=== PATIENT | male | born 1950 | race Caucasian/White ===

== ENCOUNTER 2017-03-24 21:39 | Inpatient (IN) | payer OTHER ==
[2017-03-24] MEDS ORDERED: ONDANSETRON 4 MG/2 ML VIAL IVP ONE (22:13)
[2017-03-24] MEDS ORDERED: NS 1,000 ML IV ONE (22:13)
[2017-03-24] MEDS ORDERED: HYDROmorphONE/DILAUDID 1 MG/ML SYR IVP ONE (22:13)
--- NOTE | 2017-03-24 22:13 | EDPHY ---
H & P Stated Complaint: RUQ pain, N/V HPI/ROS: HPI CHIEF COMPLAINT: Right upper quadrant pain HISTORY OF PRESENT ILLNESS: This patient is 67-year-old male significant past medical history for coronary artery disease, as well as cholecystectomy, as well as pulmonary embolism multiple, on Effient, presents emergency room with right upper quadrant pain. Yesterday states that he had some nausea vomiting 2- 3 episodes. Nonbilious nonbloody. Today developed stabbing right upper quadrant pain. Feels similar to when he previously had his gallbladder removed as well as similar to when he had a biliary stent placed. He denies fever. States the pain does radiate from his right upper quadrant down through his abdomen. Past Medical History: Coronary artery disease. Pulmonary embolism Past Surgical History: Cholecystectomy Social History: Denies daily use drugs alcohol tobacco products. Family History: Noncontributory ROS REVIEW OF SYSTEMS: A comprehensive 10 point review of systems is otherwise negative aside from elements mentioned in the history of present illness. Exam Constitutional appears well nontoxic triage nursing summary reviewed, vital signs reviewed, awake/alert. Eyes conjunctivae were slightly yellow tinged and sclera, EOMI, PERRLA. HENT normal inspection, atraumatic, moist mucus membranes, no epistaxis, neck supple/ no meningismus, no raccoon eyes. Respiratory clear to auscultation bilaterally, normal breath sounds, no respiratory distress, no wheezing. Cardiovascular rate normal, regular rhythm, no murmur, no edema, distal pulses normal. Gastrointestinal soft, tender palpation right upper quadrant, , no rebound, no guarding, normal bowel sounds, no distension, no pulsatile mass. Genitourinary no CVA tenderness. Musculoskeletal no midline vertebral tenderness, full range of motion, no calf swelling, no tenderness of extremities, no meningismus, good pulses, neurovascularly intact. Skin pink, warm, & dry, no rash, skin atraumatic. Neurologic awake, alert and oriented x 3, AAOx3, moves all 4 extremities equally, motor intact, sensory intact, CN II-XII intact, normal cerebellar, normal vision, normal speech. Psychiatric normal mood/affect. Heme/Lymph/Immune no lymphadenopathy. Differential diagnosis includes but is not limited to and in no particular order : Bowel obstruction, appendicitis, biliary stone, diverticulitis, colitis, enteritis, perforated viscus, gastritis, GERD, esophagitis, urinary tract infection, pyelonephritis, kidney stones Medical Decision Making: Plan for this patient IV establishment, IV fluid bolus , Zofran for nausea and Dilaudid for pain control, ultrasound right upper quadrant, check liver enzymes and abdominal labs including bilirubin, check urinalysis, re-evaluate. Re-evaluation: Ultrasound of the this shows dilatation of the common bile duct with sludge in it as well as intrahepatic ductal dilatation Dr. Sai Daniels and called me about this report. Spoke with Dr. Mercado gastroenterology request the patient be placed on IV antibiotics. Admission. Reason for admission is choledocholithiasis. His blood work has been reviewed. No elevated white blood cell count is not septic no fever. He has retained stones in his biliary ducts. Consistent with acute choledocholithiasis. He will need IV antibiotics bowel rest IV fluids nausea and pain control overnight. Be admitted to the hospital service GI will consult on in the morning. 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 - Social History Smoking Status: Never smoked Constitutional: Initial Vital Signs Temperature (C) 37.1 C 03/24/17 21:40 Heart Rate 100 03/24/17 21:40 Respiratory Rate 20 03/24/17 21:40 Blood Pressure 147/107 H 03/24/17 21:40 O2 Sat (%) 97 03/24/17 21:40 O2 Delivery Mode Room Air Allergies/Adverse Reactions: No Known Allergies Allergy (Verified 01/02/16 15:41) Home Medications: Medication Instructions Recorded Herbals/Supplements -Info Only 1 ea PO DAILY 03/28/16 [place]-3 Fatty Acids [Fish Oil 1000 1,000 mg PO DAILY 03/28/16 mg (*)] Prasugrel HCl [Effient 10mg (*)] 10 mg PO DAILY #30 tab 03/30/16 Medical Decision Making - Data Points Laboratory Results: Laboratory Results 03/24/17 22:02 03/24/17 22:02 Medications Given: Hydromorphone HCl (Dilaudid) 0.2 - 0.4 mg IVP Q2HRS PRN PRN Reason: Pain, Severe Unable to Take PO Stop: 04/04/17 02:39 Last Admin: 03/25/17 08:50 Dose: 0.4 mg Ertapenem 1 gm/ Sodium (Chloride) 100 mls @ 200 mls/hr IV DAILY DELIA PRN Reason: Protocol Stop: 04/24/17 08:59 Last Admin: 03/25/17 08:49 Dose: 100 mls Sodium Chloride (Ns) 1,000 mls @ 100 mls/hr IV CONT DELIA Stop: 09/21/17 00:59 Last Admin: 03/25/17 08:47 Dose: 1,000 mls Oxycodone HCl (Oxycodone Ir) 5 - 10 mg PO Q4 PRN PRN Reason: Pain, Severe Able to Take PO Stop: 04/04/17 00:54 Last Admin: 03/25/17 16:19 Dose: 5 mg Prasugrel (Effient) 10 mg PO DAILY DELIA Stop: 09/21/17 08:59 Last Admin: 03/25/17 08:58 Dose: Not Given Throat Lozenges (Cepacol Lozenge) 1 ea PO PRN PRN PRN Reason: Sore Throat Stop: 09/21/17 12:30 Last Admin: 03/25/17 12:38 Dose: 1 ea Discontinued Medications Hydromorphone HCl (Dilaudid) 0.5 mg IVP EDNOW ONE Stop: 03/24/17 22:14 Last Admin: 03/24/17 22:34 Dose: 0.5 mg Sodium Chloride (Ns) 1,000 mls @ 0 mls/hr IV EDNOW ONE; Wide Open PRN Reason: Protocol Stop: 03/24/17 22:14 Last Admin: 03/24/17 22:31 Dose: 1,000 mls Ertapenem 1 gm/ Sodium (Chloride) 100 mls @ 200 mls/hr IV EDNOW ONE PRN Reason: Protocol Stop: 03/25/17 00:54 Last Admin: 03/25/17 00:48 Dose: 100 mls Lactated Ringer's (Lr) 1,000 mls @ 0 mls/hr IV ONCE ONE PRN Reason: Per Protocol Stop: 03/25/17 09:38 Last Admin: 03/25/17 09:41 Dose: 1,000 mls Ondansetron HCl (Zofran) 4 mg IVP EDNOW ONE Stop: 03/24/17 22:14 Last Admin: 03/24/17 22:32 Dose: 4 mg Departure - Departure Disposition: [facility] Acute Clinical Impression: Choledocholithiasis, Hyperbilirubinemia Condition: Fair
[2017-03-24 22:25] LABS: % IMMATURE GRANULYOCYTES 0.4 % (0.0-1.1); ABSOLUTE IMMATURE GRANULOCYTES 0.04 10^3/uL (0.00-0.10); ADD DIFF? NO; ADD MORPH? NO; ADD SCAN? NO; ATYPICAL LYMPHOCYTE FLAG 0 (0-99); FRAGMENT RBC FLAG 0 (0-99); HEMOGLOBIN 15.5 g/dL (13.7-17.5); LEFT SHIFT FLG 0 (0-99); LIPEMIA HEMOLYSIS FLAG 90 (0-99); MEAN CELL HEMOGLOBIN 31.1 pg (27.9-34.1); MEAN CELL HEMOGLOBIN CONCENTR. 34.4 g/dL (32.4-36.7); MEAN CELL VOLUME 90.4 fL (81.5-99.8); MEAN PLATELET VOLUME 9.5 fL (8.7-11.7); PLATELET CLUMPS FLAG 0 (0-99); PLATELET COUNT 182 10^3/uL (150-400); RED BLOOD CELL COUNT 4.98 10^6/uL (4.40-6.38); RED CELL DISTRIBUTION WIDTH 13.8 % (11.5-15.2)
[2017-03-24 22:31] LABS: ALANINE AMINOTRANSFERASE 618 IU/L (21-72); ALBUMIN 4.4 g/dL (3.5-5.0); ALKALINE PHOSPHATASE 300 IU/L (38-126); ANION GAP 14 mEq/L (8-16); ASPARTATE AMINOTRANSFERASE 487 IU/L (17-59); BILIRUBIN,TOTAL 10.6 mg/dL (0.1-1.4); BILIRUBIN-CONJUGATED 8.6 mg/dL (0.0-0.5); CALCIUM 9.1 mg/dL (8.5-10.4); CARBON DIOXIDE 20 mEq/l (22-31); CHLORIDE 101 mEq/L (97-110); GLOMERULAR FILTRATION RATE > 60; GLUCOSE 132 mg/dL (70-100); POTASSIUM 3.8 mEq/L (3.5-5.2); SODIUM 135 mEq/L (134-144); TOTAL PROTEIN 7.9 g/dL (6.3-8.2)
[2017-03-24 22:32] LABS: INR 1.05 (0.83-1.16); PROTIME(PATIENT) 13.6 SEC (12.0-15.0)
[2017-03-24 22:33] LABS: APTT 25.3 SEC (23.0-38.0)
[2017-03-24 22:41] LABS: TROPONIN I < 0.012 ng/mL (0.000-0.034)
--- NOTE | 2017-03-24 22:44 | CPEKG ---
Heart Rate: 109 RR Interval: 550 P-R Interval: 120 QRSD Interval: 128 QT Interval: 340 QTC Interval: 458 P [place]: 72 QRS [place]: 23 T Wave [place]: 8 EKG Severity - ABNORMAL ECG - EKG Impression: SINUS TACHYCARDIA EKG Impression: RIGHT BUNDLE BRANCH BLOCK Electronically Signed By: Kamron Macias 25-Mar-2017 07:17:35
[2017-03-25] MEDS ORDERED: ERTAPENEM 1 GM in NS 100 ML IV ONE (00:25)
[2017-03-25] MEDS ORDERED: ONDANSETRON DISINTEGRATING 4 MG TAB PO PRN (00:52)
[2017-03-25] MEDS ORDERED: ACETAMINOPHEN 325 MG TAB PO PRN (00:52)
[2017-03-25] MEDS ORDERED: ONDANSETRON 4 MG/2 ML VIAL IVP PRN ×2 (00:52→11:01)
[2017-03-25] MEDS ORDERED: NS 1,000 ML IV SCH (01:00)
[2017-03-25] MEDS ORDERED: HYDROmorphONE/DILAUDID 1 MG/ML SYR IVP PRN (02:40)
--- NOTE | 2017-03-25 03:59 | GHP ---
[f rep st] HISTORY AND PHYSICAL DATE OF ADMISSION: 03/25/2017 CHIEF COMPLAINT: Right upper quadrant pain. HISTORY OF PRESENT ILLNESS: A 67-year-old male with history of coronary artery disease status post stent, pulmonary embolism and prior cholecystectomy and biliary stent, presenting with right upper quadrant pain. Pain started last night and he had a couple episodes of nonbloody, nonbilious emesis. He states the pain was excruciating and felt like the pain right before he needed his gallbladder out. It has been intermittent. It is not associated with food. The first night he developed pain it was after he did have a steak burrito, but he does not correlate the timing with that. Tonight, at home, he developed pain again at 7:30 p.m. Denies fevers, chills, or sweats. No diarrhea. No headache. Has been eating and drinking normally. He had a cholecystectomy in 2014 with some complication per patient that required a biliary stent that has since been removed. Denies family history of gallstones. Denies chest pain, shortness of breath. Walks 3 miles a day, near [facility] without chest pain or shortness of breath. REVIEW OF SYSTEMS: I completed a 10-point review of systems negative except as noted in HPI. PAST MEDICAL HISTORY: Coronary artery disease, last stent in 2016, pulmonary embolism 5 years ago, hypertension, history of biliary stent. PAST SURGICAL HISTORY: Appendectomy, cholecystectomy. FAMILY HISTORY: No stones. No cancer. HOME MEDICATIONS: Effient, fish oil, Co-Q10. ALLERGIES: None. SOCIAL HISTORY: Lives near [facility]. Has a previous 30-pack year smoking history, has quit since. Drinks a glass of wine daily. No illicits. PHYSICAL EXAM: VITAL SIGNS: Temperature 37, blood pressure 137/81, heart rate 100, respiration 20, 93% on room air. GENERAL: Patient is sitting up in bed, in no acute distress. HEENT: Scleral icterus. Mildly dry mucous membranes. CV: Tachy but regular. No murmurs, gallops, or rubs. LUNGS: Clear to auscultation. No crackles or wheezing. ABDOMEN: Soft, nontender after receiving pain medications in the emergency room. Positive bowel sounds. : No suprapubic tenderness. MUSCULOSKELETAL: 5/5 upper and lower extremity strength. NEUROLOGIC: Cranial nerves 2 through 12 intact. PSYCHIATRIC: Alert and oriented x3. LABORATORY DATA: WBC is 9, hemoglobin 15, hematocrit 48, platelets 182. Sodium 135, potassium 3.8, chloride 101, carbon dioxide 20, creatinine 1 ( baseline 0.8). Total bilirubin 10, conjugated 8.6, unconjugated 2. Troponin less than 0.012. AST 47, ALT 611. Coag negative. Abdominal ultrasound: Cholelithiasis. New intrahepatic and extrahepatic dilatation. A 2 x 0.9 cm x 0.9 cm distal common bile duct stone. EKG personally reviewed by me right bundle branch block, sinus tachycardia. This is new from prior. D-dimer 1. ASSESSMENT AND PLAN: 1. Choledocholithiasis: no evidence of cholangitis; he is afebrile without leukocytosis. Dr. Macias spoke with Dr. Mercado with GI. Will plan for ERCP in the morning. Patient will be n.p.o. with IV fluids and prophylactic IV antibiotics. 2. Right upper quadrant pain: Secondary to stones. Will treat with IV Dilaudid p.r.n. 3. Mild acute kidney injury. Creatinine 1, baseline is 0.8. Will hydrate overnight. 4. Hyperbilirubinemia, again secondary to stones. Plan as stated above. 5. Transaminitis again secondary to stones. 6. Mild metabolic acidosis secondary to suspected decreased p.o. intake. We will hydrate overnight, repeat in the morning. 7. Coronary artery disease: Status post PCI. Continue Effient, fish oil. Unclear why not on a statin or beta cindy. 8. History of pulmonary embolism. If it was provoked, patient is not certain. 9. Tachycardia. Sinus tach per my review of EKG likely secondary to pain, dehydration. Patient does have a history of pulmonary embolism, but not suspicious at this time as he denies any chest pain or shortness of breath. Stable on room air. 10. Elevated D-dimer: Again, patient is asymptomatic. Suspect this is secondary to acute illness. He is stable on room air and without any symptoms. If tachycardia to persist can consider CTPE. 11. Diet. N.p.o. 12. SCDs for deep venous thrombosis prophylaxis. DISPOSITION: Inpatient admission given acute choledocholithiasis warranting IV antibiotics, fluids and GI intervention. /[id number]/MODL MTDD
[2017-03-25 05:30] LABS: % IMMATURE GRANULYOCYTES 0.5 % (0.0-1.1); ABSOLUTE IMMATURE GRANULOCYTES 0.04 10^3/uL (0.00-0.10); ADD DIFF? NO; ADD MORPH? NO; ADD SCAN? NO; ATYPICAL LYMPHOCYTE FLAG 0 (0-99); FRAGMENT RBC FLAG 0 (0-99); HEMATOCRIT 38.5 % (40.0-51.0); HEMOGLOBIN 13.3 g/dL (13.7-17.5); LEFT SHIFT FLG 20 (0-99); LIPEMIA HEMOLYSIS FLAG 90 (0-99); MEAN CELL HEMOGLOBIN CONCENTR. 34.5 g/dL (32.4-36.7); MEAN CELL VOLUME 89.7 fL (81.5-99.8); MEAN PLATELET VOLUME 9.5 fL (8.7-11.7); PLATELET CLUMPS FLAG 0 (0-99); PLATELET COUNT 137 10^3/uL (150-400); RED BLOOD CELL COUNT 4.29 10^6/uL (4.40-6.38); RED CELL DISTRIBUTION WIDTH 13.9 % (11.5-15.2)
[2017-03-25 05:59] LABS: ALANINE AMINOTRANSFERASE 515 IU/L (21-72); ALBUMIN 3.2 g/dL (3.5-5.0); ALKALINE PHOSPHATASE 223 IU/L (38-126); ANION GAP 10 mEq/L (8-16); ASPARTATE AMINOTRANSFERASE 338 IU/L (17-59); BILIRUBIN,TOTAL 9.7 mg/dL (0.1-1.4); CALCIUM 8.2 mg/dL (8.5-10.4); CARBON DIOXIDE 20 mEq/l (22-31); CHLORIDE 107 mEq/L (97-110); GLOMERULAR FILTRATION RATE > 60; GLUCOSE 110 mg/dL (70-100); POTASSIUM 4.1 mEq/L (3.5-5.2); SODIUM 137 mEq/L (134-144); TOTAL PROTEIN 6.1 g/dL (6.3-8.2)
[2017-03-25 06:09] LABS: BILIRUBIN-CONJUGATED 7.9 mg/dL (0.0-0.5); BILIRUBIN-UNCONJUGATED 1.8 mg/dL (0.0-1.1)
[2017-03-25] MEDS: ERTAPENEM 1 GM in NS 100 ML IV SCH (08:49)
[2017-03-25] MEDS ORDERED: PRASUGREL HCL 10 MG TAB PO SCH (09:00)
[2017-03-25] MEDS ORDERED: LR 1,000 ML IV ONE (09:37)
--- NOTE | 2017-03-25 09:50 | GCON ---
[f rep st] CONSULTATION INPATIENT CONSULTATION NOTE REFERRING PHYSICIAN: Pattie Dacosta MD REASON FOR CONSULTATION: Choledocholithiasis. CHIEF COMPLAINT: Abdominal pain. HISTORY OF PRESENT ILLNESS: Briefly, the patient is a pleasant 67-year-old male with a history of coronary artery disease, who presented to the emergency room with right upper quadrant abdominal pain. He reports that this abdominal pain syndrome was very similar to a syndrome he suffered in 2014, when he underwent cholecystectomy for acute cholecystitis. Of note, that cholecystectomy was complicated by a bile leak, for which he had to undergo ERCP. At that time, a large sphincterotomy was accomplished. He reports he was in his usual state of health until this past several days, when he began noticing increasing recurrence of abdominal pain. He reports no fever. He denies jaundice. He reports no nausea or vomiting. His emergency room evaluation was significant for the discovery of transaminitis, with an elevation in bilirubin, and an ultrasound revealing a dilated common bile duct, and probable choledocholithiasis. ALLERGIES: None. PAST MEDICAL HISTORY: Includes coronary artery disease, for which he received a stent in 2016. He had a pulmonary embolism 5 years ago, high blood pressure, and history of acute cholecystitis with postop bile leak, requiring biliary stent. PAST SURGICAL HISTORY: Includes appendectomy, cholecystectomy. FAMILY HISTORY: Negative for biliary tract disease. HOME MEDICINES: Effient, fish oil, and coenzyme Q10. REVIEW OF SYSTEMS: A complete 10-point review of systems was done and the pertinent positives and negatives are documented in the history of present illness. PHYSICAL EXAM: GENERAL: This is a well-developed male, in no apparent distress. HEENT: His pupils are equal, round, reactive to light and accommodation. His sclerae are mildly icteric. His oropharynx is clear. NECK : Supple without lymphadenopathy. HEART: Regular without murmur. ABDOMEN: Soft, nontender, with normoactive bowel sounds. EXTREMITIES: Free of cyanosis , clubbing, or edema. NEURO: Grossly nonfocal. SKIN: Warm and dry with minimal jaundice. MUSCULOSKELETAL: His joints show no arthritis. PSYCH: Reveals normal mood and affect. Ultrasound on 03/24/2017, revealed probable choledocholithiasis with new intrahepatic ductal dilation and a mild increase in extrahepatic ductal dilation. There is a possible 2.2 x 1 x 1 cm stone. LABORATORY DATA: White count of 8.67, hemoglobin of 13.3, hematocrit of 38.5, platelet count 137. Sodium of 137, potassium of 4.1, chloride of 107, bicarb of 20, BUN of 11, creatinine of 1.0. Total bilirubin of 9.7, conjugated of 7.9, unconjugated of 1.8, AST of 338, ALT of 515, alkaline phosphatase of 223. IMPRESSION AND RECOMMENDATIONS: The patient appears to be having right upper quadrant pain from symptomatic choledocholithiasis. His laboratory testing and ultrasound are consistent with this. Given his current use of Effient, we may have limited options with regard to stone extraction, given the potential for need for dilation, sphincterotomy extension, etc., we can, however, very likely place a bridging biliary stent to labile flow, until such time as he can discontinue his Effient and proceed with a more invasive ERCP procedure. At this time, the patient should hold his Effient, I would like him to be on antibiotics given his presumed bile duct obstruction, and we will plan the ERCP. /[id number]/MODL MTDD
[2017-03-25] MEDS ORDERED: GLUCAGON,HUMAN RECOMBINANT 1 MG VIAL ONE ×2 (09:56→10:06)
[2017-03-25] MEDS ORDERED: IOTHALAMATE MEG (CONRAY) 50 ML VIAL IV ONE (09:57)
--- NOTE | 2017-03-25 10:00 | PDANEPAE ---
ANE History of Present Illness Abd pain ANE Past Medical History - Cardiovascular History Hx Coronary Artery / Peripheral Vascular Disease: Yes - Pulmonary History Hx Oxygen in Use at Home: No Hx Sleep Apnea: No Sleep Apnea Screening Result - Last Documented: Positive - Endocrine History Hx Diabetes: No - Chronic Pain History Chronic Pain: No ANE Review of Systems Review of Systems: - Exercise capacity METS (RN): 3 METS ANE Patient History - Allergies Allergies/Adverse Reactions: No Known Allergies Allergy (Verified 01/02/16 15:41) - Home Medications Home medications: home medication list seen and reviewed Home Medications: Herbals/Supplements -Info Only 1 ea PO DAILY 03/28/16 [Last Taken Unknown] [place]-3 Fatty Acids [Fish Oil 1000 mg (*)] 1,000 mg PO DAILY 03/28/16 [Last Taken 03/24/17] - NPO status NPO Since - Liquids (Date): 03/24/17 NPO Since - Liquids (Time): 21:00 NPO Since - Solids (Date): 03/24/17 NPO Since - Solids (Time): 12:00 - Smoking Hx Smoking Status: Former smoker ANE Labs/Vital Signs - Labs Result Diagrams: 03/25/17 05:25 03/25/17 05:25 - Vital Signs Blood Pressure: 139/82 Heart Rate: 91 Respiratory Rate: 20 O2 Sat (%): 94 Height: 180.34 cm Weight: 72.575 kg ANE Physical Exam - Airway Neck exam: FROM Mallampati Score: Class 2 Mouth exam: poor dentition - Pulmonary Pulmonary: no respiratory distress - Cardiovascular Cardiovascular: regular rate and rhythym - ASA Status ASA Status: III ANE Anesthesia Plan Anesthesia Plan: general endotracheal anesthesia
[2017-03-25] MEDS ORDERED: ROCURONIUM 50 MG/5 ML VIAL ONE (10:14)
[2017-03-25] MEDS ORDERED: LIDOCAINE 2% 5 ML SDV ONE (10:14)
[2017-03-25] MEDS ORDERED: fentaNYL 100 MCG/2 ML INJ ONE (10:15)
[2017-03-25] MEDS ORDERED: PROPOFOL 200 MG/20 ML VIAL ONE (10:15)
[2017-03-25] MEDS ORDERED: SUGAMMADEX SODIUM 200 MG/2 ML VIAL IVP ONE (10:54)
[2017-03-25] MEDS ORDERED: fentaNYL 100 MCG/2 ML INJ IVP PRN (11:01)
[2017-03-25] MEDS ORDERED: NALOXONE HCL 0.4 MG/ML INJ IVP PRN (11:01)
--- NOTE | 2017-03-25 11:14 | SUROPNOTE ---
[facility] Operative Report - Surgery ERCP Indication: choledocholithiasis, abdominal pain Medications: per anesthesia Complications: none acutely Description of procedure: After informed consent was obtained the patient was brought to the endoscopy suite. GETA was administered by our anesthesia colleagues without complications. The patient was then moved into the supine/ swimmer's position. The side-viewing duodenoscope was advanced into the mouth and to the proximal duodenum. The area of the papilla was visualized. Prior sphincterotomy appeared to have stenosed. A standard sphincterotome was used to guide the placement of a biliary wire into the bile tree. Injected contrast revealed a very dilated (>2cm) CBD with multiple CBD stones. Given the patient's current use of Effient, sphincterotomy, dilation, balloon sweep, etc were deferred given the increased risk of bleeding. Instead, a temporary 10Fr x 7cm stent was placed to provide biliary drainage. Findings: 1. Choledocholithiasis - multiple, large, bile duct stones noted - very dilated CBD - restenosis of prior sphincterotomy - temporary biliary drain placed - will need repeat ERCP once can be off Effient for 7 days - will likely need large sphincterotomy with balloon sphincter dilation and lithotripsy - monitor labs - advance diet to clears - monitor tonight and consider dc home tomorrow if tolerating po with less pain. - can dc antibiotics
--- NOTE | 2017-03-25 11:19 | POSTANESTH ---
Post Anesthetic Evaluation Cardiovascular Status: Normal, Stable Respiratory Status: Normal, Stable Level of Consciousness/Mental Status: Can Participate in Eval Pain Control: Adequate, Prn Tx Ordered Nausea/Vomiting Control: Adequate, Prn Tx Ordered Complications Possibly Related to Anesthesia: None Noted
[2017-03-25] MEDS ORDERED: CEPACOL LOZENGE PO PRN (12:31)
--- NOTE | 2017-03-25 15:53 | HOSPPROG ---
Hospitalist Progress Note Assessment/Plan: 67-year-old male admitted with abdominal pain. Patient is new to me today. He was found to have a stone in his common bile duct and by a endoscopy noted to have a tight sphincter. Stone removal would not perform but a stent was placed. Patient is new to me today -choledochal lithiasis with abdominal pain. With the placement of a stent the pain may be abating. He is currently on clears post stent placement. -coronary artery disease status post stent placement in 2016 on Effient. As a result the Effient his anticoagulation and bleeding will be prolong for approximately the next 7 days. Thus no sphincter dilation or stone removal could be performed. Will hold his Effient this point. -pulmonary embolus 5 years [employer] on Effient. -fever of 100.1 likely related to the choledocholithiasis. Plan patient be placed on clears and will follow his abdominal pain. He can tolerate clears and tolerated and advance diet that he can be discharged. Will hold his Effient and an ERCP with sphincterotomy and stone removal will be performed 7 days post stopping the Effient. Subjective: Reports he is feeling worse now than he did before the procedure. No fever cough shortness of breath but says the abdominal pain is slightly worse at the moment. He is relieved to know that there was an identification of the problem. Objective: Vital Signs Temp Pulse Resp BP Pulse Ox 36.8 C 77 16 140/86 H 94 03/25/17 15:36 03/25/17 15:36 03/25/17 15:36 03/25/17 15:36 03/25/17 15:36 Laboratory Results 03/25/17 05:25 03/25/17 05:25 03/24/17 03/25/17 03/26/17 05:59 05:59 05:59 Intake Total 2100 650 Balance 2100 650 PT 13.6 SEC (12.0-15.0) 03/24/17 22:02 INR 1.05 (0.83-1.16) 03/24/17 22:02 - Time Spent With Patient Time Spent with Patient: greater than 35 minutes Time Spent with Patient: Greater than 35 minutes spent on this patients care, greater than 50% of time spent counseling, educating, and coordinating care regarding the above mentioned plan. - Pending Discharge Pending Discharge Within 24 Hours: Yes Pending Discharge Date: 03/26/17 Pending Discharge Time: 11:00 - Physical Exam Constitutional: no apparent distress Eyes: PERRL, anicteric sclera Ears, Nose, Mouth, Throat: moist mucous membranes, hearing normal Cardiovascular: regular rate and rhythym, no murmur, rub, or gallop Respiratory: no respiratory distress, no rales or rhonchi, clear to auscultation Gastrointestinal: normoactive bowel sounds, tenderness (Tenderness in the right upper quadrant without rebound) Genitourinary: no bladder fullness Skin: warm Musculoskeletal: full muscle strength Neurologic: AAOx3, CN II-XII Intact Psychiatric: interacting appropriately ICD10 Worksheet Patient Problems: Problems Problem Status Onset Acute cholecystitis Acute Postoperative abdominal pain Acute Choledocholithiasis with obstruction Acute Dyspnea on exertion Acute Chest pain Acute Elevated troponin Acute Choledocholithiasis Acute Hyperbilirubinemia Acute
[2017-03-25] MEDS: oxyCODONE IR 5 MG TAB PO PRN (16:19)
[2017-03-26 03:32] VITALS: O2SAT 93
[2017-03-26 04:25] LABS: COLOR AMBER; LEUKOCYTE ESTERASE,URINE NEGATIVE (NEGATIVE); NITRITE,URINE NEGATIVE (NEGATIVE)
[2017-03-26 04:29] LABS: MUCUS TRACE /lpf (NONE-1+)
[2017-03-26 05:26] LABS: % IMMATURE GRANULYOCYTES 0.5 % (0.0-1.1); ABSOLUTE IMMATURE GRANULOCYTES 0.02 10^3/uL (0.00-0.10); ADD DIFF? NO; ADD MORPH? NO; ADD SCAN? NO; ATYPICAL LYMPHOCYTE FLAG 10 (0-99); FRAGMENT RBC FLAG 0 (0-99); HEMATOCRIT 35.8 % (40.0-51.0); HEMOGLOBIN 12.5 g/dL (13.7-17.5); LEFT SHIFT FLG 0 (0-99); LIPEMIA HEMOLYSIS FLAG 90 (0-99); MEAN CELL HEMOGLOBIN 31.4 pg (27.9-34.1); MEAN CELL HEMOGLOBIN CONCENTR. 34.9 g/dL (32.4-36.7); MEAN CELL VOLUME 89.9 fL (81.5-99.8); MEAN PLATELET VOLUME 9.5 fL (8.7-11.7); PLATELET CLUMPS FLAG 10 (0-99); PLATELET COUNT 136 10^3/uL (150-400); RED BLOOD CELL COUNT 3.98 10^6/uL (4.40-6.38)
[2017-03-26 05:40] LABS: ALANINE AMINOTRANSFERASE 448 IU/L (21-72); ALBUMIN 3.2 g/dL (3.5-5.0); ALKALINE PHOSPHATASE 196 IU/L (38-126); ANION GAP 9 mEq/L (8-16); ASPARTATE AMINOTRANSFERASE 259 IU/L (17-59); BILIRUBIN,TOTAL 8.9 mg/dL (0.1-1.4); CALCIUM 8.4 mg/dL (8.5-10.4); CARBON DIOXIDE 20 mEq/l (22-31); CHLORIDE 111 mEq/L (97-110); CREATININE 0.9 mg/dL (0.7-1.3); GLOMERULAR FILTRATION RATE > 60; GLUCOSE 114 mg/dL (70-100); POTASSIUM 4.1 mEq/L (3.5-5.2); SODIUM 140 mEq/L (134-144); TOTAL PROTEIN 5.8 g/dL (6.3-8.2)
[2017-03-26 05:47] LABS: BILIRUBIN-CONJUGATED 7.4 mg/dL (0.0-0.5); BILIRUBIN-UNCONJUGATED 1.5 mg/dL (0.0-1.1)
[2017-03-26 07:30] VITALS: BP 161/82; PULSE 84; RESP 18; TEMP 99.5
[2017-03-26] MEDS: ERTAPENEM 1 GM in NS 100 ML IV SCH (09:09)
[2017-03-26] MEDS: oxyCODONE IR 5 MG TAB PO PRN ×2 (09:40→12:49)
--- NOTE | 2017-03-26 11:07 | SOAPPROG ---
SOAP Progress Note Assessment/Plan: Assessment/Plan: 1. Choledocholithiasis - temporary plastic stent in place - will need repeat ERC with more definitive stone removal - pain has resolved - LFTs still elevated, but resolving - tolerating po - ok to dc home. - my office to arrange f/u ERCP as soon as possible - will sign off, call with questions Subjective: CC: f/u bile duct stones S: some sore throat tolerated diet advancement no pain no fever still with dark urine no cough anxious to go home Objective: Vital Signs Temp Pulse Resp BP Pulse Ox 37.5 C 84 18 161/82 H 93 03/26/17 07:29 03/26/17 07:29 03/26/17 07:29 03/26/17 07:29 03/26/17 07:29 Laboratory Results 03/26/17 05:08 03/26/17 05:08 03/25/17 03/26/17 03/27/17 05:59 05:59 05:59 Intake Total 2100 850 Output Total 250 Balance 2100 600 PT 13.6 SEC (12.0-15.0) 03/24/17 22:02 INR 1.05 (0.83-1.16) 03/24/17 22:02 Laboratory Tests 03/24/17 03/24/17 03/25/17 22:02 22:02 05:25 WBC Hgb Hct Plt Count D-Dimer 1.12 H Glucose 132 H 110 H Total Bilirubin 10.6 H 9.7 H Conjugated Bilirubin 8.6 H 7.9 H Unconjugated Bilirubin 2.0 H 1.8 H AST 487 H 338 H ALT 618 H 515 H Alkaline Phosphatase 300 H 223 H Albumin 03/26/17 03/26/17 05:08 05:08 WBC 4.05 Hgb 12.5 L Hct 35.8 L Plt Count 136 L D-Dimer Glucose 114 H Total Bilirubin 8.9 H Conjugated Bilirubin 7.4 H Unconjugated Bilirubin 1.5 H AST 259 H ALT 448 H Alkaline Phosphatase 196 H Albumin 3.2 L Physical Exam - Physical Exam EENT: PERRL/EOMI, scleral icterus (R), scleral icterus (L) Respiratory: lungs clear Cardiac/Chest: normal peripheral pulses, regular rate, rhythm, No edema Abdomen: normal bowel sounds, non-tender, soft, No organomegaly, No distended, No guarding, No rebound Rectal: deferred Skin: normal color, jaundice Extremities: normal range of motion Neuro/Psych: no motor/sensory deficits ICD10 Worksheet Patient Problems: Problems Problem Status Onset Choledocholithiasis Acute Hyperbilirubinemia Acute Acute cholecystitis Acute Chest pain Acute Choledocholithiasis with obstruction Acute Dyspnea on exertion Acute Elevated troponin Acute Postoperative abdominal pain Acute
--- NOTE | 2017-03-26 14:29 | GDS ---
[f rep st] DISCHARGE SUMMARY NEW AND ACUTE DIAGNOSES: 1. Acute choledocholithiasis with jaundice. 2. Coronary artery disease, status post stent placement in 2016, on Effient at time of admission. 3. Pulmonary embolus 5 years [employer]. CONSULTATION: GI. PROCEDURES: Upper endoscopy was performed with duodenoscope. Finding of very dilated common bile duct and restenosis of a prior sphincterotomy. A plastic stent was left in place. Stone extraction was not attempted, as the patient was on Effient. HOSPITAL COURSE: This 67-year-old gentleman presented with a complaint of jaundice and right upper quadrant pain. On imaging, he was found to have choledocholithiasis, and upper endoscopy revealed a stenosis of his prior sphincterotomy. A plastic stent was left in place without effort for stone extraction, as the gentleman was anticoagulated on Effient. Laboratory studies confirmed the finding of an elevated AST, bilirubin and alkaline phosphatase. Following the procedure, his laboratory studies were improving, although he remained jaundice. His Effient was stopped prior to the procedure and will be held until further evaluation. DISCHARGE MEDICATIONS: Stopped medication will be Effient. His usual medications will be omega-3 fatty acids and herbal supplementation. New medication will be [place] 5/325 mg tablets #12. Time: 40 minutes > 50% to eap counselor and coordinate care. Matters of anticoagulation were explained to the patient and details of the needed followup /[id number]/MODL MTDD
--- NOTE | 2017-03-29 17:06 | ASDISCHSUM ---
Discharge Information Plan Status:Home with Home Health Medically Cleared to Leave:03/26/2017 Discharge Date:03/26/2017 02:00 PM CM D/C Disposition:Home, Routine, Self-Care ADT D/C Disposition:Home, Routine, Self-Care Projected Discharge Date:03/26/2017 12:00 AM Transportation at D/C: Discharge Delay Reason: Follow-Up Date:03/26/2017 12:00 AM Discharge Slot: Final Diagnosis: Placement Information Patient Contact Information Contact Name:AYLEEN Relationship:Daughter Address: City: [facility][1] Phone: [facility]/CVRx Code: Email: Financial Information Financial Class:HMO and PPO Plans Primary Plan Desc[place] Primary Plan Number:[id number] Secondary Plan Desc: Secondary Plan Number: Assessment Information Intervention Information
== END 2017-03-26 14:00 | disposition home or self-care (01) | DRG 445 ==
LOC: F3E 03-25 01:02
PROVIDERS: ADMIT Internal Medicine; ATTEND Internal Medicine Pulmonary Disease
PROC: 0F798DZ Dilation of Common Bile Duct with Intraluminal Device, Via Natural or Artificial Opening Endoscopic (ICD-10-PCS; principal; 2017-03-25 10:30)
DX: K80.50 Calculus of bile duct without cholangitis or cholecystitis without obstruction (principal); R17 Unspecified jaundice; I25.10 Atherosclerotic heart disease of native coronary artery without angina pectoris; Z95.5 Presence of coronary angioplasty implant and graft; Z79.01 Long term (current) use of anticoagulants; Z86.711 Personal history of pulmonary embolism; Z66 Do not resuscitate
CPT/HCPCS: 96374; C2625; J1170; J1335; J1610; J2405; J2704; J3010; Q9961